=== PATIENT | male | born 1975 | race Caucasian/White ===

== ENCOUNTER 2018-09-17 18:20 | Emergency (ER) | payer OTHER ==
--- NOTE | 2018-09-17 18:44 | EDM.PDOC ---
<JaynaHorace butler W - Last Filed: 09/17/18 19:12> ED HPI GENERAL MEDICAL PROBLEM - General Chief Complaint: Lower Extremity Injury/Pain Time Seen by Provider: 09/17/18 18:20 Source of Information: Reports: Patient History Limitations: Reports: No Limitations - History of Present Illness INITIAL COMMENTS - FREE TEXT/NARRATIVE: Pt. presents to ER with complaints of R lower extremity pain. Pt. states that he feel/jumped off of a truck and landed with his R leg completely outstretched and taking all of the weight of the fall. Denies striking head or injuring neck during the fall. States the the pain is located in the area of the proximal tibia as well as the medial and lateral R ankle. He states that he is experiencing burning to the entire extremity but denies any paresthesia to the extremity. He was able to bear weight but with increased discomfort. Denies any pain in the area of the femur or hip. Onset: Today Onset Date: 09/17/18 Location: Reports: Lower Extremity, Right Quality: Reports: Throbbing Severity: Severe Right Lower Leg Pain Score (Numeric/FACES): 8 - Related Data Allergies Allergy/AdvReac Type Severity Reaction Status Date / Time cheese Allergy Vomiting Verified 09/17/18 18:33 Home Meds: Home Meds . [No Known Home Meds] 09/17/18 [History] Past Medical History - Past Health History Medical/Surgical History: Denies Medical/Surgical History Social & Family History - Tobacco Use Smoking Status *Q: Unknown Ever Smoked Review of Systems - Review of Systems Review Of Systems: See Below Constitutional: Reports: No Symptoms Eyes: Reports: No Symptoms Ears: Reports: No Symptoms Nose: Reports: No Symptoms Mouth/Throat: Reports: No Symptoms Respiratory: Reports: No Symptoms Cardiovascular: Reports: No Symptoms Musculoskeletal: Reports: Other (pain to R lateral proximal lower leg and to ankle.) Neurological: Reports: No Symptoms ED EXAM, GENERAL - Physical Exam Exam: See Below Exam Limited By: No Limitations General Appearance: Alert, WD/WN, No Apparent Distress Extremities: Normal Inspection, Leg Pain (pain to R lateral proximal lower leg and to ankle. No obvious deformity. No crepitus.) Course - Vital Signs Last Recorded V/S: Last Vital Signs Temp 37.0 C 09/17/18 18:20 Pulse 88 09/17/18 18:20 Resp 16 09/17/18 18:20 BP 135/71 09/17/18 18:20 Pulse Ox 98 09/17/18 18:20 - Orders/Labs/Meds Meds: Medications Discontinued Medications Generic Name Dose Route Start Last Admin Trade Name Nicanor PRN Reason Stop Dose Admin Ketorolac Tromethamine 30 mg 09/17/18 19:27 Toradol IM 09/17/18 19:28 ONETIME ONE Departure - Departure Disposition: Home, Self-Care 01 Clinical Impression: Right knee sprain, Right ankle sprain - Discharge Information Instructions: Ankle Sprain, [id number], Knee Sprain, Adult, [id number] Referrals: PCP,Not In Area [Primary Care Provider] - Forms: ED Department Discharge Additional Instructions: Plan 1. alternate ibuprofen and tylenol for pain and swelling 2. Elevate and ice your leg as needed 3. If pain is not better in 5-7 days you should pursue an MRI to rule out any ligament damage to the knee as well as the ankle 4. Call if you have any questions or concerns <Tk Sahni - Last Filed: 09/17/18 20:34> Course - Radiology Interpretation Free Text/Narrative:: x-rays reveal no acute fractures within the ankle, tibia, or fibula - Re-Assessments/Exams Free Text/Narrative Re-Assessment/Exam: 09/17/18 19:33 Assumed care of patient as of 1899. All x-ray films reviewed which reveal no acute fractures. Patient counseled regarding possible need for follow up MRI to rule out any ligament damage if pain persists. He did express understanding and stated he would go to the [facility] in [place] if he needed to do so. Departure - Departure Time of Disposition: 19:58 Condition: Good - Discharge Information *PRESCRIPTION DRUG MONITORING PROGRAM REVIEWED*: Not Applicable *COPY OF PRESCRIPTION DRUG MONITORING REPORT IN PATIENT CARO: Not Applicable - Problem List & Annotations (1) Right ankle sprain SNOMED Code(s): 78261145 Code(s): S93.401A - SPRAIN OF UNSPECIFIED LIGAMENT OF RIGHT ANKLE, INIT ENCNTR Status: Acute Priority: Low Current Visit: Yes Qualifiers: Encounter type: initial encounter Involved ligament of ankle: unspecified ligament Qualified Code(s): S93.401A - Sprain of unspecified ligament of right ankle, initial encounter (2) Right knee sprain SNOMED Code(s): 80809331 Code(s): S83.91XA - SPRAIN OF UNSPECIFIED SITE OF RIGHT KNEE, INITIAL ENCOUNTER Status: Acute Priority: Low Current Visit: Yes Qualifiers: Encounter type: initial encounter Involved ligament of knee: unspecified ligament Qualified Code(s): S83.91XA - Sprain of unspecified site of right knee, initial encounter - Problem List Review Problem List Initiated/Reviewed/Updated: Yes - Assessment/Plan Assessment:: right knee and ankle sprain Plan: Plan 1. alternate ibuprofen and tylenol for pain and swelling 2. Elevate and ice your leg as needed 3. If pain is not better in 5-7 days you should pursue an MRI to rule out any ligament damage to the knee as well as the ankle 4. Call if you have any questions or concerns
--- NOTE | 2018-09-17 19:04 | CR ---
[id number] RAD/RAD Ankle Right 3V Min EXAM: 3 VIEWS RIGHT ANKLE. INDICATION: ANKLE AND KNEE PAIN, FALL OFF TRUCK. COMPARISON: None. DISCUSSION: No fracture, dislocation or other acute osseous abnormality. IMPRESSION: 1. No acute osseous abnormalities. Woody Finnegan DO 09/17/18 [id number] Thank you for allowing us to participate in the care of your patient.
--- NOTE | 2018-09-17 19:05 | CR ---
[id number] RAD/RAD Tibia Fibula Right EXAM: 2 VIEWS RIGHT TIB-FIB. INDICATION: RIGHT LOWER EXTREMITY PAIN POST FALL. COMPARISON: None. DISCUSSION: No fracture, dislocation or other osseous abnormality. IMPRESSION: 1. No acute osseous abnormalities. Woody Finnegan DO 09/17/18 [id number] Thank you for allowing us to participate in the care of your patient.
[2018-09-17] MEDS ORDERED: Ketorolac 30 MG/ML SDV IM ONE (19:27)
== END 2018-09-17 19:58 | disposition home or self-care (01) ==
LOC: VM.ED 18:20
DX: S93.401A Sprain of unspecified ligament of right ankle, initial encounter (principal); S83.91XA Sprain of unspecified site of right knee, initial encounter; Z91.011 Allergy to milk products; W17.89XA Other fall from one level to another, initial encounter
CPT/HCPCS: 73590-RT; 73610-RT; 96372; 99283-25; J1885